=== PATIENT | female | born 1995 | race African-American/Black ===

== ENCOUNTER 2018-09-28 14:59 | Emergency (ER) | payer OTHER ==
[~2018-09-28] VITALS: Ht 160 cm; Wt 51.0 kg
[2018-09-28 15:06] VITALS: BP 102/65
[2018-09-28 15:36] LABS: BASOPHILS % 0.5 % (0.0-2.0); EOSINOPHILS % 0.2 % (0.0-5.0); HEMATOCRIT. 35.4 % (36.0-48.0); HEMOGLOBIN. 12.1 g/dL (12.0-16.0); LYMPHOCYTES % 10.9 % (20.0-50.0); MEAN CORPUSCULAR VOLUME 90.8 fL (81.0-99.0); MEAN PLATELET VOLUME 8.9 fl (7.4-10.4); MONOCYTES % 5.8 % (2.0-8.0); NEUTROPHILS % 82.6 % (40.0-76.0); PLATELET 213 x1000/uL (130-400); RED CELL DISTRIBUTION WIDTH 12.4 % (11.6-14.6)
[2018-09-28 15:40] LABS: CHLORIDE 105 mEq/L (98-107)
[2018-09-28] MEDS ORDERED: ACETAMINOPHEN 325MG TABLET PO ONE (15:45)
[2018-09-28 16:04] LABS: B-HCG QUANTITATIVE 163554 mIU/mL (<3)
[2018-09-28] MEDS ORDERED: ONDANSETRON HCL 4MG/2ML INJ IV ONE (17:45)
[2018-09-28 18:01] LABS: CLARITY URINE CLOUDY (CLEAR); COLOR URINE ORANGE (YELLOW); KETONES URINE 4+ (NEGATIVE); LEUKOCYTE ESTERASE URINE 1+ (NEGATIVE); NITRITE URINE NEGATIVE (NEGATIVE); OCCULT BLOOD URINE 3+ (NEGATIVE); PH URINE 8.5 (4.5-8.0); PROTEIN URINE 1+ (NEGATIVE); SPECIFIC GRAVITY URINE 1.029 (1.005-1.030)
== END 2018-09-28 18:52 | disposition home or self-care (01) ==
LOC: ER 14:59
DX: O20.0 Threatened abortion (principal); O23.41 Unspecified infection of urinary tract in pregnancy, first trimester; Z3A.08 8 weeks gestation of pregnancy; D72.829 Elevated white blood cell count, unspecified
CPT/HCPCS: 36415; 76801; 76817; 80053; 81003; 81025; 84702; 85025; 86850; 86900; 86901; 96374; 99284; J2405; Z7610